=== PATIENT | male | born 1945 | race Caucasian/White ===

== ENCOUNTER 2017-07-29 21:07 | Emergency (ER) | payer MEDICARE ==
--- NOTE | 2017-07-29 21:51 | RAD ---
PORTABLE CHEST: History: Dyspnea. FINDINGS: Heart size is enlarged. Mediastinal structures appear unremarkable. The lungs are clear of infiltrate s. There are no signs of failure. IMPRESSION: Cardiomegaly. POS: [facility]
== END 2017-07-29 23:07 | disposition home or self-care (01) ==
LOC: ERS 21:07
DX: R09.89 Other specified symptoms and signs involving the circulatory and respiratory systems (principal); E78.5 Hyperlipidemia, unspecified; E78.1 Pure hyperglyceridemia; I10 Essential (primary) hypertension
CPT/HCPCS: 71045

== ENCOUNTER 2019-03-10 14:20 | Outpatient (CLI) | payer MEDICARE, OTHER ==
--- NOTE | 2019-03-10 16:17 | MRI ---
MRI Pelvis W WO Con History: R 97.2 increased PSA Comparison: None. Findings: Multiplanar multisequence MRI of the pelvis was performed prior to and after the intravenou s administration of contrast. Exam was reviewed on an independent 3-D workstation. Prostate measures 4.7 x 3.8 x 4.1 cm for a volume of 34.7 mL. Peripheral zone: No focal area of markedly hypointense signal on ADC or hyperintense signal on DWI. Transitional zone: There are circumscribed hypointense and heterogeneous encapsulated nodules. Prostatic capsule: Intact. Seminal vesicles: Intact. Likely reactive bilateral external iliac lymph nodes do not have significant diffusion restriction. Bones: On the T1 weighted sequence no abnormal foci of marrow signal replacement to suggest osseous m etastatic disease. Neurovascular bundles: Intact. Impression: 1. PI-RADS 2: Low (clinically significant prostate cancer is unlikely to be present). 2. Intact neurovascular bundle, prostatic capsule, and seminal vesicles. No evidence for osseous or l ymphatic metastatic disease.
== END 2019-03-10 14:21 | disposition home or self-care (01) ==
LOC: TBSIIMAG 14:20
PROVIDERS: ATTEND Urology
DX: R97.20 Elevated prostate specific antigen [PSA] (principal)
CPT/HCPCS: 72197

== ENCOUNTER 2019-03-17 19:30 | Outpatient (CLI) | payer MEDICARE | END 2019-03-17 19:31 | disposition home or self-care (01) | LOC: SLEEPLAB 19:30 | PROVIDERS: ATTEND Otolaryngology Plastic Surgery within the Head & Neck | DX: G47.33 Obstructive sleep apnea (adult) (pediatric) (principal); R53.83 Other fatigue; R35.1 Nocturia; I10 Essential (primary) hypertension; R13.10 Dysphagia, unspecified; G47.00 Insomnia, unspecified; E66.9 Obesity, unspecified; Z68.37 Body mass index [BMI] 37.0-37.9, adult | CPT/HCPCS: 95810 ==

== ENCOUNTER 2019-07-10 06:29 | Outpatient (CLI) | payer MEDICARE, OTHER ==
[2019-07-10 15:52] LABS: Hemoglobin 14.4 g/dL (14.0-18.0); Mean Corpuscular HGB CONC 33.7 g/dL (32.0-36.0); Mean Corpuscular Hemoglobin 31.5 pg (27.0-31.0); Mean Corpuscular Volume 93.6 fL (78.0-98.0); Mean Platelet Volume 6.7 fL (7.4-10.4); Platelet Count 261 thou/uL (130-400); RBC Distribution Width 11.9 % (11.5-14.5); Red Blood Cell (RBC) Count 4.56 mill/uL (4.70-6.10); White Blood Cell (WBC) Count 8.9 thou/uL (4.8-10.8)
[2019-07-10 15:58] LABS: INR-International Normal Ratio 1.1; PTT 32.6 SEC (22.9-36.1); Prothrombin Time 13.7 SEC (12.0-14.7)
[2019-07-10 16:11] LABS: Anion Gap 11 mmol/L (10-20); BUN (Urea Nitrogen) 22 mg/dL (8.4-25.7); Calc. Creatinine Clearance 0 mL/min (70-130); Calcium 9.7 mg/dL (7.8-10.44); Carbon Dioxide 29 mmol/L (23-31); Chloride 101 mmol/L (98-107); Estimated GFR-MDRD 80; Glucose 91 mg/dL (83-110); Potassium 3.9 mmol/L (3.5-5.1); Sodium 137 mmol/L (136-145)
[2019-07-10 16:19] LABS: Bacteria/HPF None Seen HPF (None Seen); Bilirubin Negative (Negative); Blood, Urine Negative (Negative); Clarity Clear (Clear); Glucose, Urine (Dipstick) Normal (Negative); Leukocyte Negative Leu/uL (Negative); Nitrite Negative (Negative); Protein, Urine (Dipstick) 30 mg/dL (Neg-Trace); RBC/HPF 0-3 HPF (0-3); Squamous Epithelial None Seen HPF (0-3); Urobilinogen Normal mg/dL (Less than 2); WBC/HPF 0-3 HPF (0-3)
== END 2019-07-10 06:30 | disposition home or self-care (01) ==
LOC: LABBT 06:29
PROVIDERS: ATTEND Urology
DX: Z01.818 Encounter for other preprocedural examination (principal); Z12.5 Encounter for screening for malignant neoplasm of prostate; N40.1 Benign prostatic hyperplasia with lower urinary tract symptoms; R97.20 Elevated prostate specific antigen [PSA]; Q61.01 Congenital single renal cyst; R35.0 Frequency of micturition; D35.01 Benign neoplasm of right adrenal gland; N52.9 Male erectile dysfunction, unspecified; R31.29 Other microscopic hematuria; R80.8 Other proteinuria; K64.9 Unspecified hemorrhoids
CPT/HCPCS: 80048; 81001; 85027; 85610; 85730; 87086; 93005; 93010

== ENCOUNTER 2019-07-20 06:53 | Day surgery (SDC) | payer MEDICARE, OTHER ==
[2019-07-10 14:51] VITALS: BMI 31.6
[2019-07-20] MEDS ORDERED: cefTRIAXone\\ROCEPHIN 2 GM in Sodium Chloride 0.9% 100 ML IVPB SCH (08:30)
[2019-07-20] MEDS ORDERED: PROPOFOL 200 MG/20 ML VIAL ONE (09:31)
[2019-07-20] MEDS ORDERED: HYDROcodone/Acetaminophen 5/325 mg Tablet ONE (10:41)
--- NOTE | 2019-07-20 13:21 | OP ---
DATE OF PROCEDURE: 07/20/2019 PREOPERATIVE DIAGNOSES: 1. Mr. Sherman is a 74-year-old male with history of benign prostatic hypertrophy, on dual medical therapy. IPSS over 22. 2. History of elevated PSA. Prostate biopsy negative for malignancy. POSTOPERATIVE DIAGNOSES: 1. Mr. Sherman is a 74-year-old male with history of benign prostatic hypertrophy, on dual medical therapy. IPSS over 22. 2. History of elevated PSA. Prostate biopsy negative for malignancy. PROCEDURES PERFORMED: Cystoscopy, UroLift implant x4. ANESTHESIA: TIVA. COMPLICATIONS: None apparent. DISPOSITION: To recovery room in stable condition. INDICATIONS FOR THE PROCEDURE AND HISTORY: Mr. Sherman is a 74-year-old male with history of BPH, has been on dual medical therapy for numerous years and desires to transition to UroLift. Risks and complications of the procedure were reviewed with him in detail including, but not limited to, bleeding, pain, infection, injury to adjacent organs, urosepsis, possible injury to adjacent organs, chronic pain, extrusion of implant resulting in urolithiasis was reviewed with him in detail and he desired to proceed. Options of observation also discussed as well as TURP. DESCRIPTION OF PROCEDURE: After an informed consent was signed, the patient was taken to the operating room, placed in a dorsal lithotomy position with the genital area prepped and draped in the usual surgical sterile fashion. A 21-Japanese cystoscope was utilized for cystoscopy, which demonstrated bilobar hyperplasia of the prostate which was moderately obstructing. No median lobe was appreciated. Trabeculated bladder consistent with chronic outlet obstruction. The UOs were kept out of harm's way at all times. At this time, we re-staged the prostatic urethra with the UroLift implant, visual obturator. A total of 4 implants, two on each side was placed with creation of nice anterior channel. Care was taken to stay approximately a [id number] proximal to the bladder neck. He tolerated the procedure well and transported to the recovery room in stable condition. He is discharged with ciprofloxacin for course of 3 days, he is to continue his BPH medications, Azo p.r.n. He will return to clinic in the next few days for peak flow PVR check. Job ID: [id number] [facility]
== END 2019-07-20 11:30 | disposition home or self-care (01) ==
LOC: SDC 06:53
PROVIDERS: ATTEND Urology
PROC: 0T7D8DZ Dilation of Urethra with Intraluminal Device, Via Natural or Artificial Opening Endoscopic (ICD-10-PCS; principal; 2019-07-20)
DX: N40.1 Benign prostatic hyperplasia with lower urinary tract symptoms (principal); R35.0 Frequency of micturition; R31.29 Other microscopic hematuria; R80.8 Other proteinuria; N52.9 Male erectile dysfunction, unspecified; I10 Essential (primary) hypertension; E78.5 Hyperlipidemia, unspecified; Z79.82 Long term (current) use of aspirin; Z79.899 Other long term (current) drug therapy
CPT/HCPCS: C1889; C9740; J0696; J3490

== ENCOUNTER 2019-09-08 19:30 | Outpatient (CLI) | payer MEDICARE, OTHER | END 2019-09-08 19:31 | disposition home or self-care (01) | LOC: SLEEPLAB 19:30 | PROVIDERS: ATTEND Otolaryngology Plastic Surgery within the Head & Neck | DX: G47.33 Obstructive sleep apnea (adult) (pediatric) (principal); R53.83 Other fatigue; E66.9 Obesity, unspecified; R06.83 Snoring; I10 Essential (primary) hypertension; R35.1 Nocturia; Z68.37 Body mass index [BMI] 37.0-37.9, adult | CPT/HCPCS: 95811 ==

== ENCOUNTER 2022-02-20 13:12 | Outpatient (CLI) | payer MEDICARE | END 2022-02-20 13:13 | disposition home or self-care (01) | LOC: BICULT 13:12 | PROVIDERS: ATTEND Urology | DX: N40.1 Benign prostatic hyperplasia with lower urinary tract symptoms (principal); N39.0 Urinary tract infection, site not specified; R31.29 Other microscopic hematuria; N32.89 Other specified disorders of bladder | CPT/HCPCS: 76770 ==